=== PATIENT | female | born 1975 | race Caucasian/White ===

== ENCOUNTER 2024-06-05 14:12 | Emergency (ER) | payer MEDICAID ==
[~2024-06-05] VITALS: Ht 157.5 cm; Wt 62.1 kg
[2024-06-05 14:19] VITALS: BP_SYST 91; PULSE 64; RESP 18; TEMP 98.3; O2SAT 98
[2024-06-05] MEDS: cephALEXin 500 MG CAPSULE PO ONE (16:20)
[2024-06-05] MEDS: IBUPROFEN 600 MG TABLET PO ONE (16:20)
[2024-06-05] MEDS: LIDOCAINE 2%, 20 ML MDV INJ ONE (16:21)
[2024-06-05] MEDS ORDERED: IBUP-1969 PO (16:23)
[2024-06-05] MEDS ORDERED: CEPH-548 PO (16:23)
[2024-06-05] MEDS ORDERED: NEOM28.36 TP (16:23)
[2024-06-05 16:32] VITALS: BP_SYST 91; PULSE 64; RESP 18; TEMP 98.3; O2SAT 98
[2024-06-05] MEDS ORDERED: ONDANSETRON HCL 4 MG/2 ML VIAL ONE (16:49)
== END 2024-06-05 16:32 | disposition home or self-care (01) ==
LOC: SED 14:12
DX: L03.012 Cellulitis of left finger (principal)
CPT/HCPCS: 99283; 10060; J2405; J2001

== ENCOUNTER 2024-06-07 12:27 | Emergency (ER) | payer MEDICAID ==
[~2024-06-07] VITALS: Ht 167.6 cm; Wt 68.0 kg
[~2024-06-07 12:27] MED LIST: CEPH-548 PO; IBUP-1969 PO; NEOM28.36 TP
[2024-06-07 12:37] VITALS: BP_SYST 96; PULSE 82; RESP 18; TEMP 97.8; O2SAT 100
[2024-06-07 16:21] LABS: CALCIUM 8.9 mg/dL (8.4-11.0); CREATININE 0.8 mg/dL (0.55-1.30); POTASSIUM 4.4 mmol/L (3.5-5.1)
[2024-06-07 16:22] LABS: BASOPHILS % (AUTO) 0.5 % (0.0-2.0); EOSINOPHILS # (AUTO) 0.1 K/uL (0.0-0.4); EOSINOPHILS % (AUTO) 2.4 % (0.0-4.0); HEMATOCRIT 38.8 % (36-48); HEMOGLOBIN 13.2 g/dL (12.0-16.0); LYMPHOCYTES % (AUTO) 32.5 % (20.5-51.5); MEAN CORPUSCULAR HEMOGLOBIN 32 pg (27-31); MEAN CORPUSCULAR HGB CONC 34 % (32-36); MEAN CORPUSCULAR VOLUME 93 fL (79.0-98.0); MONOCYTES # (AUTO) 0.3 K/uL (0.0-1.0); MONOCYTES % (AUTO) 5.7 % (1.7-9.3); NEUTROPHILS # (AUTO) 3.6 K/uL (1.8-7.7); NEUTROPHILS % (AUTO) 58.9 % (40.0-70.0); PLATELET COUNT (AUTO) 281 K/uL (130-430); RED BLOOD CELL COUNT(AUTO) 4.17 MIL/uL (4.2-6.2); RED CELL DISTRIBUTION WIDTH 14.1 % (9.0-15.0); WHITE BLOOD COUNT (AUTO) 6.1 K/uL (4.8-10.8)
[2024-06-07 16:47] VITALS: BP_SYST 96; PULSE 82; RESP 18; TEMP 97.8; O2SAT 100
== END 2024-06-07 16:47 | disposition home or self-care (01) ==
LOC: SED 12:27
DX: L03.012 Cellulitis of left finger (principal); Z79.899 Other long term (current) drug therapy; Z79.2 Long term (current) use of antibiotics
CPT/HCPCS: 36415; 80048; 83605; 85025; 99283